=== PATIENT | female | born 1975 | race Two or more races ===

== ENCOUNTER 2021-05-19 15:15 | Inpatient (IN) | payer OTHER ==
[~2021-05-19] VITALS: Ht 160 cm; Wt 83.9 kg
[2021-05-19] MEDS ORDERED: BUPROPION XL450 MG PO (15:43)
[2021-05-19] MEDS ORDERED: LAMICTAL25 MG PO (15:43)
[2021-05-19] MEDS ORDERED: CLONAZEPAM0.5 MG PO (15:44)
== END 2021-05-24 11:17 | disposition home or self-care (01) | DRG 812 ==
LOC: ER 15:15 → OB/GYN 20:13
PROVIDERS: ADMIT Student in an Organized Health Care Education/Training Program; ATTEND Student in an Organized Health Care Education/Training Program
PROC: 30233N1 Transfusion of Nonautologous Red Blood Cells into Peripheral Vein, Percutaneous Approach (ICD-10-PCS; principal; 2021-05-19)
PROC: BU4CZZZ Ultrasonography of Uterus and Ovaries (ICD-10-PCS; 2021-05-19)
DX: D50.0 Iron deficiency anemia secondary to blood loss (chronic) (principal); N39.0 Urinary tract infection, site not specified; N93.8 Other specified abnormal uterine and vaginal bleeding; N92.1 Excessive and frequent menstruation with irregular cycle; D25.9 Leiomyoma of uterus, unspecified